=== PATIENT | female | born 1965 | race Caucasian/White ===

== ENCOUNTER 2021-07-29 12:27 | Outpatient (CLI) | payer BC, SELFPAY ==
--- NOTE | 2021-07-29 12:38 | ECG_ITS ---
Measurements Intervals [place] Rate: 57 P: 43 DE: 172 QRS: -12 QRSD: 92 T: 63 QT: 449 QTc: 440 Interpretive Statements SINUS BRADYCARDIA BASELINE ARTIFACT POSSIBLE LEFT ATRIAL ENLARGEMENT [-0.1mV P WAVE IN V1/V2] BORDERLINE ECG NO PREVIOUS ECG AVAILABLE FOR COMPARISON Electronically Signed On 07-29-2021 18:10:34 CDT by Edin Ruiz M.D.
[2021-07-29 13:15] LABS: Anion Gap 6 mmol/L (8-16); Blood Urea Nitrogen 18 mg/dL (7-17); Calcium 9.5 mg/dL (8.4-10.2); Carbon Dioxide 31 mmol/L (22-30); Chloride 100 mmol/L (98-107); Estimated Glomerular Filt Rate > 60; Glucose 132 mg/dL (65-110); Potassium 4.2 mmol/L (3.4-5.0); Sodium 137 mmol/L (137-145)
== END 2021-07-29 12:28 | disposition home or self-care (01) ==
LOC: ANHSURGERY 12:30
PROVIDERS: Anesthesiology; Visit Provider Otolaryngology
DX: I10 Essential (primary) hypertension (principal); Z79.899 Other long term (current) drug therapy; R94.31 Abnormal electrocardiogram [ECG] [EKG]
CPT/HCPCS: 36415; 80048; 93005

== ENCOUNTER 2021-07-31 00:51 | Day surgery (SDC) | payer BC, SELFPAY ==
[2021-07-24 11:38] VITALS: BMI 31.3
--- NOTE | 2021-07-24 11:46 | PC.NURSE ---
Report to the Outpatient Waiting Room, entrance under the green pavilion located off [facility], at time 7:30 on date 07/31/21. OR Time: 9:30. - You and your visitor will be asked a series of questions to screen for COVID 19 for your protection. - A mask is required within the hospital. One visitor will be allowed to accompany the patient into the hospital. Patients visitor will be instructed to remain with patient at all times or leave the building. We will allow the visitor to come back to the postoperative area when patient is ready. Preoperative COVID Testing Requirements: No COVID Test needed if: (proof is required; if not received patient will have Rapid Test prior to entry) - Patient has received COVID Vaccine at least 14 days prior to procedure date or - Patient has positive COVID test result within last 90 days of surgery date. COVID Test needed if above criteria is not met Patients may have clear liquids (water, carbonated beverages, clear teas, apple juice) until 3 hours prior to surgery (6:30) with a maximum of 20 ounces. - No food from midnight until time of surgery Take the following medications with a SIP of water the morning of surgery: AMLODIPINE, FLUOXETINE, PAIN PILL (IF NEEDED) Medications to discontinue per physician: VITAMINS/SUPPLEMENTS Date to take last dose: 07/27/21 Please no make-up, nail bulgarian, hairspray, perfume, deodorant, or body powder the day of surgery. No jewelry (including any body piercings) or valuables the day of surgery, leave them at home. Please take a shower or bath the night before, or the morning of, surgery with an antibacterial soap. Wear comfortable, loose fitting clothing. - Jewelry must be removed prior to entering the operating room. Rings and piercings that are not removed may be cut off. - The hospital will not accept responsibility for valuables. - Please leave all valuables, including medications, at home the day of surgery. If you are going home after surgery, a licensed power truck driver must drive you home. - NO public transportation without another adult. - We recommend that an adult stay with you for 24 hours following discharge. - We also recommend that you do not drive, make important decision, drink alcoholic beverages, or take any drugs that were not prescribed by your health care provider for at least 24 hours after your discharge time. Follow any additional instructions given to you from your surgeon. Telephone instructions given to TOR JOYA and asked if any additional questions and then verbalized understanding. Patient advised to call surgeon office or pre surgery nurse liaison [phone] if any additional questions.
--- NOTE | 2021-07-30 07:49 | PM.IMHP ---
H&P: HPI History of Present Illness Date/Time: 07/30/21 07:49 Chief Complaint: Nasal polyps chronic sinusitis septal deviation turbinate hypertrophy nasal obstruction nasal congestion Narrative: patient presents for planned surgical procedure no change in symptoms no change in history. Review of Systems Constitutional: Constitutional: Denies fatigue, Denies fever(s) and Denies lethargy Eyes: Eyes: Denies blurry vision and Denies change in vision ENT: Reports as per HPI Cardiovascular: Cardiovascular: Denies chest pain Respiratory: Respiratory: Denies cough Endocrine: Endocrine: Denies fatigue Hematologic/Lymphatic: Hematologic/Lymphatic: Denies easy bleeding, Denies easy bruising and Denies lymphadenopathy Allergic/Immunologic: Allergic/Immunologic: Denies seasonal rhinorrhea PMF Social History Social History Smoking status: Never smoker Alcohol intake: current Alcohol use details: 5/YEAR Substance use: never Substance use type: does not use Additional living arrangements comments: SON Spiritual care concerns: No Meds Home Medications and Allergies Home Medications Medication Instructions Recorded Confirmed Type budesonide 0.25 mg/2 mL suspension 0.25 mg IRRIGATION BID #60 ml 06/09/21 07/24/21 Rx for nebulization amlodipine 10 mg PO DAILY 07/24/21 07/24/21 History cetirizine [Zyrtec] 20 mg PO DAILY 07/24/21 07/24/21 History fluoxetine 40 mg PO DAILY 07/24/21 07/24/21 History hydrochlorothiazide 25 mg PO DAILY 07/24/21 07/24/21 History hydrocodone-acetaminophen 1 tablet PO QID 07/24/21 07/24/21 History lisinopril 5 mg PO DAILY 07/24/21 07/24/21 History multivitamin with minerals 2 tablet PO DAILY 07/24/21 07/24/21 History [Hair,Skin and Nails] omeprazole [Prilosec] 40 mg PO DAILY 07/24/21 07/24/21 History prednisone 20 mg tablet 20 mg PO DAILY #3 tablet 07/27/21 Rx Allergies Allergy/AdvReac Type Severity Reaction Status Date / Time Sulfa (Sulfonamide Allergy Severe Itching Verified 07/24/21 11:34 Antibiotics) adhesive tape Allergy Swelling Verified 07/24/21 11:55 Exam Const: General: cooperative, healthy appearing, comfortable, well developed and alert HENMT: Head: normal to inspection, normocephalic and atraumatic Ears: hearing grossly normal bilaterally, external ears normal, TM's normal bilaterally and EAC's normal General nose exam: Normal external nose present, Normal nares present and Other nasal findings present ( septal deviation turbinate hypertrophy) Face and sinus: normal facial exam Mouth: Yes Normal oral and palatal mucosa present, Yes lip normal, Yes tongue normal, Yes oropharynx normal and Yes moist mucous membranes Teeth and gingiva: dentition normal and gingiva normal Throat: posterior oropharynx normal, tonsils normal and uvula midline Eyes: General: appearance normal, both eyes and all related structures Periorbital: periorbital findings normal Eyelids: eyelids normal Conjunctivae: conjunctivae normal Sclera: sclerae normal Neck: Neck: normal visual inspection, full ROM and no lymphadenopathy Thyroid: thyroid normal Lymphatic: no lymphadenopathy noted Resp: Effort & Inspection: normal respiratory effort and able to speak in complete sentences Cardio: Jugular venous distension: no JVD Neuro: Cranial nerves: Yes CN's II-XII intact bilaterally Assessment and Plan Assessment and plan (1) Hypertrophy of both inferior nasal turbinates: Code(s): J34.3 - Hypertrophy of nasal turbinates Status: Acute Assessment and Plan: plan is for the operating room endoscopic image guided bilateral maxillary antrostomies total ethmoidectomies sphenoidotomies frontal sinusotomies endoscopic assisted septoplasty inferior turbinate submucosal resection with outfracture. Risks were discussed including bleeding infection , postoperative bleeding, postoperative pain, need to ke
[2021-07-31] VITALS (10 sets, daily range): BP systolic 107–136; BP diastolic 72–84; PULSE 61–88; RESP 12–17; TEMP 36.5–36.8; O2SAT 94–100; BMI 31.4
--- NOTE | 2021-07-31 07:09 | WPDHPUPDATE1 ---
History and Physical Update Update Date/Time: 07/31/21 07:09 History and Physical has been reviewed, including an updated exam of the patient. There are NO changes in the patient's condition. Risks, benefits, and alternatives have been discussed and questions answered. Patient agrees to proceed with procedure.
--- NOTE | 2021-07-31 08:31 | P.PNAN_ITS ---
Anes - Initial Pre Proc Eval Procedure: Operation Date: 07/31/21 09:30 Proposed Procedures p Image Guided Bilateral Sphenoidotomy, Total Ethmoidectomy, Frontal Sinusotomies, Bilateral Maxillary Antrostomy, Bilateral Inferior Turbinectomy with Outfracture - George Peña MD s Endoscopic Septoplasty - George Peña MD Date/Time: 07/31/21 08:31 Surgeon: George Peña MD Pre Op Diagnosis: Chronic Sinusitis Patient Data Age: 56 Gender: F Height: 1.7 m Weight: 90.72 kg Allergies Allergy/AdvReac Type Severity Reaction Status Date / Time Sulfa (Sulfonamide Allergy Severe Itching Verified 07/24/21 11:34 Antibiotics) adhesive tape Allergy Swelling Verified 07/24/21 11:55 Home Medications Medication Instructions Recorded Confirmed Type budesonide 0.25 mg/2 mL suspension 0.25 mg IRRIGATION BID #60 ml 06/09/21 07/24/21 Rx for nebulization amlodipine 10 mg PO DAILY 07/24/21 07/24/21 History cetirizine [Zyrtec] 20 mg PO DAILY 07/24/21 07/24/21 History fluoxetine 40 mg PO DAILY 07/24/21 07/24/21 History hydrochlorothiazide 25 mg PO DAILY 07/24/21 07/24/21 History hydrocodone-acetaminophen 1 tablet PO QID 07/24/21 07/24/21 History lisinopril 5 mg PO DAILY 07/24/21 07/24/21 History multivitamin with minerals 2 tablet PO DAILY 07/24/21 07/24/21 History [Hair,Skin and Nails] omeprazole [Prilosec] 40 mg PO DAILY 07/24/21 07/24/21 History prednisone 20 mg tablet 20 mg PO DAILY #3 tablet 07/27/21 Rx Patient hx anesthesia problems: none Family hx anesthesia problems: none Results Review: All pre-operative results and documents have been reviewed as part of the pre-operative evaluation. [facility] Social History Social History Smoking status: Never smoker Alcohol intake: current Alcohol use details: 5/YEAR Substance use: never Substance use type: does not use Living arrangements: with family Additional living arrangements comments: SON Spiritual care concerns: No Anes - Eval Final PreProcedure Day of Procedure 07/31/21 08:31 Patient weight: obese Heart: regular rate and rhythm Lungs: clear to auscultation Airway: Mallampati scale class II Neurological: alert and oriented Last oral intake: >/= 8 hours ASA classification: III Emergent: no Anesthetic plan: proceed Anesthesia type and monitoring: general ETT and standard monitoring Results Review: All pre-operative results and documents have been reviewed as part of the pre-operative evaluation. Informed Consent: The patient's anesthetic plan and its attendant risks and benefits were discussed with the patient/family/POA. Questions were solicited and answers provided to the satisfaction of the patient/family/POA.
[2021-07-31] MEDS: ACETAMINOPHEN 500 MG TABLET 1000 MG PO ×2 (08:34)
[2021-07-31] MEDS: LACTATED RINGERS 1,000 ML 30 ML IV CONT ×2 (08:34→12:13)
--- NOTE | 2021-07-31 09:06 | SUR.PREOP ---
PT TOOK HYDROCODONE THIS AM. CLARIFIED WITH ANESTESIA ABOUT 1G TYLENOL PREOP ORDER. WAS TOLD BY ANESTESIA TO GIVE THE 1 GM OF TYLENOL IN PREOP.
[2021-07-31] MEDS: ceFAZolin 2 GM/D5W 50 ML 2 GM/50 ML BAG IVPB (09:14)
[2021-07-31] MEDS: OXYMETAZOLINE HCL 0.05% NAS 15 ML BTL (*BKC) 1 SPRAY NASAL (09:38)
[2021-07-31] MEDS: MUPIROCIN 2% OINT 22 GM TUBE 1 APPLIC TOPICAL (11:39)
[2021-07-31] MEDS: LIDO 1%/EPINEPHRINE/PF 1:200,000 30 ML VIAL XX (11:39)
[2021-07-31] MEDS: fentaNYL CITRATE INJ (*CRX) 100 MCG/2 ML VIAL 25 MCG IV PUSH ×8 (12:20→13:55)
--- NOTE | 2021-07-31 12:34 | P.OP_ITS ---
Procedure Note - Detailed Date of Procedure 07/31/21 Pre-op Diagnosis Chronic Sinusitis, nasal congestion, nasal obstruction, nasal polyps Post-op Diagnosis Same Procedure Performed Endoscopic assisted septoplasty inferior turbinate reduction with outfracture bilateral image guided endoscopic maxillary antrostomies total ethmoidectomies frontal sinusotomies sphenoidotomies, bilateral middle turbinate resection, polypectomy Surgeon George Peña MD Anesthesia General Indications See above Findings Polyps and polypoid edema in all the aforementioned sinuses polyps involving the middle turbinates which was widely removed no complications patent postoperative cavities straight septum no concomitant perforations well reduced turbinates Description of Procedure Patient identified consent verified. Patient brought operating room. Time-out performed. General anesthesia induced endotracheal tube secured taped left lower lip. Patient prepped and draped. Second time-out performed. Image guidance initiated. Afrin-soaked pledgets placed let to sit for 5 minutes then removed. 0 degree endoscope utilized. 17 cc 1% local 1 100,000 parts epinephrine injected bilateral nasal septum inferior turbinates as well as middle turbinates. Alexi incision made left-sided 15 blade left-sided mucoperichondrial flap dissected with 7 [place] suction small perforation crossed over with osteotome right-sided mucoperichondrial flap elevated no concomitant perforations large spur removed portion obstructing the bilateral middle meati I and frontal outflow tracts removed. She Arron incision closed with 3 interrupt ed 5 0 fast gut sutures. Turbinates reduced the submucosal plane using microdebrider 2 mm blade outfractured with [place] mulberry tips cauterized. Middle turbinates then removed with straight through cut with cautery of the stumps using Bovie suction electrocautery setting of 15. Maxillary antrostomies, again, all the sinus surgery is bilateral, were performed with double ball tip probe backbiter and straight through cut as well as micro debrider polypoid edema in the bilateral max is polypectomy performed total ethmoidectomies performed with [place] image guidance microdebrider sphenoidoto mies performed with image guidance [place] 1 in 3 [place] as well as sphenoid punch. 70 degree scope utilized perform frontal sinusotomies as well as Cobra Hosemann and 70 degree suction. Outflow tracts were appropriately sized. Bleeding was excellent. Hemostasis was excellent bleeding was minimal. Nav[place] splints placed sutured anteriorly using a 3-0 mattressed nylon suture. I performed all dictated portions of the procedure. Blood loss 100 cc. No complications. Care the patient turned over to Anesthesiology. Implants Navarro Estimated Blood Loss 100 Drains No Packing No Pathology None sent Complications No immediate complications Condition Stable Disposition PACU
[2021-07-31] MEDS: oxyCODONE HCL (*CRX) 5 MG TAB IR PO (14:29)
== END 2021-07-31 15:00 | disposition home or self-care (01) ==
PROVIDERS: Visit Provider Otolaryngology
PROC: (CPT 31256; principal; 2021-07-31 09:30)
PROC: (CPT 30520; 2021-07-31 09:30)
DX: J32.9 Chronic sinusitis, unspecified (principal); R09.81 Nasal congestion; J34.89 Other specified disorders of nose and nasal sinuses; J33.9 Nasal polyp, unspecified; J34.3 Hypertrophy of nasal turbinates; J34.2 Deviated nasal septum; R09.82 Postnasal drip; J33.8 Other polyp of sinus; Z79.51 Long term (current) use of inhaled steroids; E66.9 Obesity, unspecified; Z68.31 Body mass index [BMI] 31.0-31.9, adult
CPT/HCPCS: 31256; 31253; 31287; 61782; 30999; 30140; 30520; A9270; J0330; J0690; J1100; J2250; J2405; J2704; J3010; J7120